=== PATIENT | female | born 1940 | race Caucasian/White ===

== ENCOUNTER 2024-02-21 11:33 | Outpatient (REF) | payer MEDICARE, OTHER, SELFPAY ==
[2024-02-21 12:13] LABS: Appearance Urine Clear (Clear); Bilirubin Urine Negative (Negative); Blood Urine Trace-intact (Negative); Color Urine Yellow (Yellow); Glucose Urine Trace (Negative); Ketones Urine Negative (Negative); Leukocyte Esterase Urine Negative (Negative); Nitrite Urine Negative (Negative); Protein Urine Negative (Negative); Specific Gravity Urine 1.015 (1.000-1.030); Urobilinogen Urine 0.2 (0.2-1.0)
[2024-02-21 12:39] LABS: RBC Urine 0-2 (0-2); WBC Urine 0-2 (0-5)
[2024-02-21 12:40] LABS: Squamous Epithelial Cell Urine Few (None-Few)
== END 2024-02-21 11:34 | disposition home or self-care (01) ==
LOC: NPINS 11:33
PROVIDERS: PCP Family Medicine; Visit Provider Nurse Practitioner Gerontology
DX: R30.0 Dysuria (principal)
CPT/HCPCS: 81001; 81003; 87086

== ENCOUNTER 2024-04-18 14:40 | Outpatient (REF) | payer MEDICARE, OTHER, SELFPAY ==
[2024-04-18 15:58] LABS: Basophils Absolute Auto 0.02 K/uL (0.00-0.30); Basophils Percent Auto 0.2 % (0.0-3.0); Hematocrit 34.4 % (33.0-51.0); Hemoglobin* 11.1 gm/dL (12.0-16.0); Immature Granulocytes Abs Auto 0.07 K/uL (0.00-0.30); Immature Granulocytes Pct Auto 0.8 %; Lymphocytes Percent Auto 5.3 % (20-44); Mean Corpuscular HGB Conc 32 gm/dL (32-36); Mean Corpuscular Hemoglobin 29 pg (26-34); Mean Corpuscular Volume 90 fL (80-100); Monocytes Percent Auto 6.3 % (0.0-11.0); Neutrophils Percent Auto 87.4 % (42.0-72.0); Platelet Count* 229 K/uL (140-440); RDW Coefficient of Variation % 12.7 % (11.5-15.5); Red Blood Count 3.84 m/uL (4.00-5.20)
[2024-04-18 16:13] LABS: Slide Review Reflex No
[2024-04-18 16:21] LABS: Albumin* 3.4 g/dL (3.3-5.0); Chloride* 97 mmol/L (96-114); Potassium* 3.9 mmol/L (3.6-5.1); Sodium* 130 mmol/L (135-149)
[2024-04-18 16:23] LABS: Creatinine* 0.8 mg/dL (0.5-1.5); Estimated Glomerular Filt Rate 73 ml/min
[2024-04-18 16:24] LABS: Alanine Aminotransferase* 30 U/L (4-35); Alkaline Phosphatase* 57 U/L (40-150); Aspartate Amino Transferase* 22 U/L (12-35); Bilirubin Total* 0.2 mg/dL (0.1-1.5); Blood Urea Nitrogen* 38 mg/dL (7-30); Carbon Dioxide* 27 mmol/L (20-32); Glucose* 183 mg/dL (60-115)
[2024-04-18 16:25] LABS: Calcium* 9.2 mg/dL (8.4-10.6)
[2024-04-18 16:32] LABS: Anion Gap 6 mEq/L (7-15)
== END 2024-04-18 14:41 | disposition home or self-care (01) ==
LOC: NPINS 14:40
PROVIDERS: PCP Family Medicine; Visit Provider Nurse Practitioner Gerontology
DX: R53.1 Weakness (principal)
CPT/HCPCS: 80053; 85025

== ENCOUNTER 2024-04-19 10:12 | Outpatient (REF) | payer MEDICARE, OTHER, SELFPAY ==
[2024-04-19 11:49] LABS: Appearance Urine Slightly Cloudy (Clear); Bacteria Urine Many; Bilirubin Urine Negative (Negative); Blood Urine 1+ (Negative); Color Urine Yellow (Yellow); Glucose Urine Trace (Negative); Ketones Urine Negative (Negative); Leukocyte Esterase Urine 3+ (Negative); Nitrite Urine Positive (Negative); Protein Urine Trace (Negative); Squamous Epithelial Cell Urine Few (None-Few); Urobilinogen Urine 0.2 (0.2-1.0); WBC Urine >100 (0-5); pH Urine 5.5 (5.0-8.5)
== END 2024-04-19 10:13 | disposition home or self-care (01) ==
LOC: NPINS 10:12
PROVIDERS: PCP Family Medicine; Visit Provider Nurse Practitioner Gerontology
DX: R41.0 Disorientation, unspecified (principal); R53.1 Weakness
CPT/HCPCS: 81001; 87086; 87186